=== PATIENT | female | born 1955 | race Caucasian/White ===

== ENCOUNTER → 2017-04-24 | Outpatient (CLI) | payer OTHER ==
[~2017-04-24] MED LIST: ADVIN25/60 INH; ALBU18002 INH; ASPI81TA28 PO; ATEN-173 PO; ATOR-24 PO; CALTRATE PO; CHOL1000 PO; CHOL1TAB46 PO; CIPR-255 PO; CLIN150C PO; CLOP1TAB15 PO; DOCU100C PO; FLUT0.15 INTNAS; HYDR12.55 PO; KRIL1CAP18 PO; LEVO50TA6 PO; LOSA1TAB38 PO; METR-162 PO; MONT1TAB3 PO; MULT-1018 PO; NTRGSL/4 UT; OMEG10007 PO; RANI150T85 PO; RANO500T PO; TRAZ50TA35 PO; TRMCR515 TOP
[2017-04-24 17:25] LABS: BASO % 0.5 %; BASO ABS # 0.03 K/uL (0-0.2); EOS % 2.9 %; EOS ABS # 0.16 K/uL (0-0.5); HEMATOCRIT 37.8 % (37-47); IG# 0.02 K/uL (0.00-0.02); LYMPH % 39.4 %; LYMPH ABS # 2.15 K/uL (1.2-3.4); MEAN CELL VOLUME 89.4 fL (80-100); MEAN CORPUSCULAR HEMOGLOBIN 30.7 pg (25-34); MEAN CORPUSCULAR HGB CONC 34.4 g/dl (32-36); MEAN PLATELET VOLUME 9.5 fL (7.4-10.4); MONO % 7.5 %; MONO ABS # 0.41 K/uL (0.11-0.59); NEUT % 49.3 %; NEUT ABS # 2.69 K/uL (1.4-6.5); PLATELET COUNT 260 K/uL (130-400); RED CELL DISTRIBUTION WIDTH CV 12.8 % (11.5-14.5); RED CELL DISTRIBUTION WIDTH SD 41.2 fL (36.4-46.3); WHITE BLOOD COUNT 5.46 K/uL (4.8-10.8)
[2017-04-24 18:59] LABS: ALBUMIN 3.8 gm/dl (3.4-5.0); ALT/SGPT 30 U/L (12-78); AST/SGOT 20 U/L (15-37); BLOOD UREA NITROGEN 20 mg/dl (7-18); CALCIUM 9.3 mg/dl (8.5-10.1); CARBON DIOXIDE 22 mmol/L (21-32); CHOLESTEROL 194 mg/dl (0-200); CREATININE 1.07 mg/dl (0.60-1.20); GLUCOSE 96 mg/dl (70-99); POTASSIUM 3.9 mmol/L (3.5-5.1); SODIUM 136 mmol/L (136-145)
[2017-04-24 19:11] LABS: ALKALINE PHOSPHATASE 67 U/L (45-117); LDL CHOLESTEROL CALCULATED 108 mg/dl; TOTAL PROTEIN 7.7 gm/dl (6.4-8.2)
[2017-04-25 06:15] LABS: HEMOGLOBIN A1C 5.2 % (4.5-5.6)
== END | disposition home or self-care (01) ==
LOC: C.LABPBG 14:41
PROVIDERS: ATTEND Neuromusculoskeletal Medicine & OMM
DX: Z00.00 Encounter for general adult medical examination without abnormal findings (principal); I25.10 Atherosclerotic heart disease of native coronary artery without angina pectoris; E78.5 Hyperlipidemia, unspecified; I10 Essential (primary) hypertension; Z83.3 Family history of diabetes mellitus; R53.83 Other fatigue

== ENCOUNTER → 2017-08-31 | Outpatient (CLI) | payer OTHER ==
[~2017-08-31] MED LIST changes: -CHOL1TAB46 PO; -CIPR-255 PO; -CLIN150C PO; -KRIL1CAP18 PO; -METR-162 PO; -MULT-1018 PO; -TRMCR515 TOP
[2017-08-31 13:44] LABS: ALBUMIN 3.9 gm/dl (3.4-5.0); ALT/SGPT 59 U/L (12-78); AST/SGOT 39 U/L (15-37); BLOOD UREA NITROGEN 22 mg/dl (7-18); CALCIUM 9.3 mg/dl (8.5-10.1); CARBON DIOXIDE 26 mmol/L (21-32); CHOLESTEROL 216 mg/dl (0-200); CREATININE 0.91 mg/dl (0.60-1.20); GLUCOSE 96 mg/dl (70-99); POTASSIUM 3.9 mmol/L (3.5-5.1); SODIUM 139 mmol/L (136-145)
[2017-08-31 13:48] LABS: ALKALINE PHOSPHATASE 59 U/L (45-117); LDL CHOLESTEROL CALCULATED 129 mg/dl; TOTAL PROTEIN 7.6 gm/dl (6.4-8.2)
== END | disposition home or self-care (01) ==
LOC: C.LABPBG 08:14
PROVIDERS: ATTEND Neuromusculoskeletal Medicine & OMM
DX: E78.5 Hyperlipidemia, unspecified (principal); I10 Essential (primary) hypertension; R53.83 Other fatigue

== ENCOUNTER 2017-11-19 14:58 | Emergency (ER) | payer OTHER ==
[~2017-11-19] VITALS: Ht 157.5 cm; Wt 86.5 kg
[2017-11-19 15:05] VITALS: TEMP 36.8; Ht 157.5 cm; Wt 86.5 kg
[2017-11-19] MEDS ORDERED: SODIUM CHLORIDE 0.9% 1000ML 1,000 ML IV STA (15:16)
[2017-11-19] MEDS ORDERED: ONDANSETRON INJ 2 MG/ML 2 ML VIAL IV STA (15:16)
[2017-11-19] MEDS ORDERED: OPTIRAY 320 IV PRN (15:30)
[2017-11-19 16:03] LABS: BASO % 0.2 %; BASO ABS # 0.02 K/uL (0-0.2); HEMOGLOBIN 13.4 g/dL (12.0-16.0); IG# 0.02 K/uL (0.00-0.02); LYMPH % 12.6 %; LYMPH ABS # 1.23 K/uL (1.2-3.4); MEAN CELL VOLUME 89.4 fL (80-100); MEAN CORPUSCULAR HEMOGLOBIN 31.5 pg (25-34); MEAN CORPUSCULAR HGB CONC 35.3 g/dl (32-36); MEAN PLATELET VOLUME 9.3 fL (7.4-10.4); MONO % 9.1 %; MONO ABS # 0.89 K/uL (0.11-0.59); NEUT % 76.9 %; NEUT ABS # 7.52 K/uL (1.4-6.5); PLATELET COUNT 208 K/uL (130-400); RED CELL DISTRIBUTION WIDTH CV 12.7 % (11.5-14.5); RED CELL DISTRIBUTION WIDTH SD 41.2 fL (36.4-46.3); WHITE BLOOD COUNT 9.78 K/uL (4.8-10.8)
[2017-11-19 16:29] LABS: CALCIUM 9.1 mg/dl (8.5-10.1); CREATININE 1.02 mg/dl (0.60-1.20); POTASSIUM 3.7 mmol/L (3.5-5.1); TOTAL PROTEIN 8.1 gm/dl (6.4-8.2)
[2017-11-19] MEDS ORDERED: MoRPHine SULFATE 4 MG/ML 1 ML CARP\\VIAL IV STA (17:02)
--- NOTE | 2017-11-19 17:24 | EMERGENCY ROOM VISIT NOTE ---
History Report prepared by Sandra: Nilsa He Under the Supervision of: Dr. Sameer Doherty D.O. First contact with patient: 15:09 Chief Complaint: ABDOMINAL PAIN Stated Complaint: STOMACH AND BACK PAIN History of Present Illness The patient is a 62 year old female who presents to the Emergency Room with complaints of intermittent abdominal pain that started a few weeks ago. The patient states that this pain started to increase in severity in the past two days. The patient notes that the pain is consistent throughout her lower abdomen , down her legs, and up her spine. The patient notes that she cannot eat or drink, but that eating does not increase her pain. She also states that twisting , turning, and bending exacerbates the pain. The patient denies nausea, vomiting , diarrhea, cough, rhinorrhea, vaginal bleeding, and vaginal discharge. The patient states that her last bowel movement was yesterday, but she was not able to produce a large amount. Source of History: patient Onset: A few weeks ago Position: abdomen Timing: intermittent Modifying Factors (Worsening): movement Associated Symptoms: + back pain, No cough, No nausea, No vomiting, No diarrhea Note: The patient complains of leg pain. The patient denies rhinorrhea, vaginal bleeding and vaginal discharge. Review of Systems See HPI for pertinent positives & negatives. A total of 10 systems reviewed and were otherwise negative. Past Medical & Surgical Surgical Problems: (1) Hx of appendectomy Family History Diabetes mellitus Heart disease Hypertension Social History Smoking Status: Never Smoker Alcohol Use: none Housing Status: lives with significant other Occupation Status: unemployed Current/Historical Medications Scheduled Aspirin (Aspirin Ec), 81 MG PO QAM Atenolol (Tenormin), 50 MG PO BID Atorvastatin (Lipitor), 40 MG PO QPM Cholecalciferol (Vitamin D3), 5,000 UNITS PO QAM Ciprofloxacin Hcl (Cipro), 500 MG PO BID Clindamycin Hcl (Cleocin), 300 MG PO Q6 Clopidogrel (Plavix), 75 MG PO QAM Docusate Sodium (Stool Softener), 100 MG PO BID Fish Oil ([place]-3), 1 CAP PO QAM Fluticasone Prop/Salmeterol (Advair Diskus 250/50 60 Dose), 1 PUFFS INH BID Fluticasone Propionate (Nasal) (Flonase Allergy Relief), 2 SPRAYS INTNAS QPM Hydrochlorothiazide (Hydrochlorothiazide), 1 TAB PO QPM Krill Oil ([place]-3 500 mg), 1 CAP PO QAM Levothyroxine Sodium (Levothyroxine Sodium), 50 MCG PO QAM Losartan Potassium (Cozaar), 100 MG PO QPM Metronidazole (Flagyl), 500 MG PO TID Montelukast Sodium (Singulair), 10 MG PO QAM Multiple Vitamins W/ Minerals (Hair Skin and Nails Formu), 1 TAB PO DIRECTED Nitroglycerin (Nitrostat), 0.4 MG UT PRN Ranolazine (Ranexa), 1 TAB PO BID Triamcinolone Acet (Triamcinolone Acetonide), 1 APPLN TOP BID Scheduled PRN Albuterol Sulfate (Proair Respiclick), 2 PUFFS INH Q4-6H PRN for PRN Ranitidine (Zantac), 150 MG PO BID PRN for PRN Allergies Coded Allergies: Hydrocodone (Verified Allergy, Unknown, RASH, 11/19/17) Nitroglycerin (Verified Allergy, Unknown, HIVES, 11/19/17) PILL FORM OK PER PT Oxycodone (Verified Adverse Reaction, Unknown, TACHYCARDIA, 11/19/17) Propoxyphene (Verified Adverse Reaction, Unknown, TACHYCARDIA, 11/19/17) Physical Exam Vital Signs Date Time Temp Pulse Resp B/P (MAP) Pulse Ox O2 Delivery O2 Flow Rate FiO2 11/19/17 17:49 81 18 140/81 97 Room Air 11/19/17 17:19 79 20 145/87 98 Room Air 11/19/17 15:05 36.8 76 16 147/78 95 Room Air Physical Exam GENERAL: Sitting up in bed, disheveled, mild distress EYE EXAM: normal conjunctiva. OROPHARYNX: no exudate, no erythema, lips, buccal mucosa, and tongue normal and mucous membranes are moist NECK: supple, no nuchal rigidity, no adenopathy, non-tender LUNGS: Clear to auscultation. Normal chest wall mechanics HEART: no murmurs, S1 normal and S2 normal ABDOMEN: abdomen soft, minimal tenderness of the periumbilical region bilaterally, normo-active bowel sounds, no masses, no rebound or guarding. BACK: Back is symmetrical on inspection and there is no deformity, no midline tenderness, no CVA tenderness. SKIN: no rashes and no bruising UPPER EXTREMITIES: upper extremities are grossly normal. LOWER EXTREMITIES: No pitting edema. NEURO EXAM: Normal sensorium, cranial nerves II-XII grossly intact, normal speech, no gross weakness of arms, no gross weakness of legs. Medical Decision & Procedures ER Provider Diagnostic Interpretation: Radiology results as stated below per my review and the radiologist's interpretation: ABDOMEN AND PELVIS CT WITH IV CONTRAST CT DOSE: 557.62 mGy.cm HISTORY: Diffuse abdominal pain. TECHNIQUE: Multiaxial CT images of the abdomen and pelvis were performed following the use of intravenous contrast. A dose lowering technique was utilized adhering to the principles of ALARA. COMPARISON STUDY: None. FINDINGS: There is a 3 mm nodule within the right lower lobe on image 13. No pneumoperitoneum. No pneumatosis. No suspicious lytic or blastic osseous lesions. The liver, gallbladder, pancreas, spleen, adrenal glands, and kidneys are unremarkable. No hydronephrosis. Normal bladder. The uterus is surgically absent. No retroperitoneal lymphadenopathy. Focal thickening of the mid sigmoid colon with pericolonic fat stranding. Multiple inflamed diverticula. This is consistent with acute diverticulitis. No perforation or abscess at this time. No evidence for bowel obstruction. There is a small appendiceal stump present. Therefore, the appendix is surgically absent. IMPRESSION: 1. Acute sigmoid diverticulitis. No perforation or abscess. 2. A 3 mm indeterminate pulmonary nodule within the right lower lobe. Please refer to the chart below for recommended follow-up. Please refer to below summary of Fleischner criteria recommendations for follow-up of incidental CT nodules (Johnathon Swanson, Guidelines for management of small pulmonary nodules detected on CT scans: A statement from the Fleischner Society, Radiology 237: [phone].) SOLID NODULES Solitary nodule size: <6 mm * Low risk patients: no follow-up needed * high risk patients: optional CT at 12 months Solitary nodule size: 6-8 mm * Low risk patients: follow-up at 6-12 months, then consider further follow-up at 18-24 months * high risk patients: initial follow-up CT at 6-12 months and then at 18-24 months if no change Solitary nodule size: >8 mm * either low or high risk patients - consider follow-up CT at 3 months, and/or CT-PET, and/or biopsy Multiple nodules size: <6 mm * Low risk patients: no routine follow-up * high risk patients: optional CT at 12 months Multiple nodules size: 6-8 mm * Low risk patients: follow-up at 3-6 months, then consider further follow-up at 18-24 months * high risk patients: follow-up at 3-6 months, then at 18-24 months if no change Multiple nodules size: >8 mm * Low risk patients: follow-up at 3-6 months, then consider further follow-up at 18-24 months * high risk patients: follow-up at 3-6 months, then at 18-24 months if no change Note: newly detected indeterminate nodule in persons 35 years of age or older. * Low risk patients: minimal or absent history of smoking and/or other known risk factors * high risk patients: history of smoking or of other known risk factors (e.g. first degree relative with lung cancer, or exposure to asbestos, radon, uranium) * if a nodule up to 8 mm is partly solid or is ground glass further follow-up is required after 24 months to exclude possible slow growing adenocarcinoma (BEE) SUBSOLID NODULES Solitary pure ground-glass nodule * nodule size <6 mm - no CT follow-up required * nodule size >=6 mm - follow-up CT at 6-12 months, then every 2 years until 5 years Solitary part-solid nodule * nodule size <6 mm - no CT follow-up required * nodule size >=6 mm - follow-up CT at 3-6 months. If unchanged, and solid component remains <6 mm, then annual follow-up for 5 years Multiple subsolid nodules * nodule size <6 mm - follow-up CT at 3-6 months, consider further follow-up at 2 and 4 years if stable * nodule size >=6 mm - follow-up CT at 3-6 months, subsequent management based on the most suspicious nodule(s) Electronically signed by: Houston Roach M.D. 11/19/2017 5:35 PM Dictated Date/Time: 11/19/2017 5:29 PM Laboratory Results 11/19/17 15:45 Red Blood Count 4.25, Mean Corpuscular Volume 89.4, Mean Corpuscular Hemoglobin 31.5, Mean Corpuscular Hemoglobin Concent 35.3, Mean Platelet Volume 9.3, Neutrophils (%) (Auto) 76.9, Lymphocytes (%) (Auto) 12.6, Monocytes (%) (Auto) 9.1, Eosinophils (%) (Auto) 1.0, Basophils (%) (Auto) 0.2, Neutrophils # (Auto) 7.52, Lymphocytes # (Auto) 1.23, Monocytes # (Auto) 0.89, Eosinophils # (Auto) 0.10, Basophils # (Auto) 0.02 11/19/17 15:45 Test 11/19/17 15:45 White Blood Count 9.78 K/uL (4.8-10.8) Red Blood Count 4.25 M/uL (4.2-5.4) Hemoglobin 13.4 g/dL (12.0-16.0) Hematocrit 38.0 % (37-47) Mean Corpuscular Volume 89.4 fL (80-100) Mean Corpuscular Hemoglobin 31.5 pg (25-34) Mean Corpuscular Hemoglobin Concent 35.3 g/dl (32-36) Platelet Count 208 K/uL (130-400) Mean Platelet Volume 9.3 fL (7.4-10.4) Neutrophils (%) (Auto) 76.9 % Lymphocytes (%) (Auto) 12.6 % Monocytes (%) (Auto) 9.1 % Eosinophils (%) (Auto) 1.0 % Basophils (%) (Auto) 0.2 % Neutrophils # (Auto) 7.52 K/uL (1.4-6.5) Lymphocytes # (Auto) 1.23 K/uL (1.2-3.4) Monocytes # (Auto) 0.89 K/uL (0.11-0.59) Eosinophils # (Auto) 0.10 K/uL (0-0.5) Basophils # (Auto) 0.02 K/uL (0-0.2) RDW Standard Deviation 41.2 fL (36.4-46.3) RDW Coefficient of Variation 12.7 % (11.5-14.5) Immature Granulocyte % (Auto) 0.2 % Immature Granulocyte # (Auto) 0.02 K/uL (0.00-0.02) Urine Color YELLOW Urine Appearance CLEAR (CLEAR) Urine pH 5.0 (4.5-7.5) Urine Specific [place] 1.016 (1.000-1.030) Urine Protein NEG (NEG) Urine Glucose (UA) NEG (NEG) Urine Ketones NEG (NEG) Urine Occult Blood NEG (NEG) Urine Nitrite NEG (NEG) Urine Bilirubin NEG (NEG) Urine Urobilinogen NEG (NEG) Urine Leukocyte Esterase SMALL (NEG) Urine WBC (Auto) 1-5 /hpf (0-5) Urine RBC (Auto) 0-4 /hpf (0-4) Urine Hyaline Casts (Auto) 1-5 /lpf (0-5) Urine Epithelial Cells (Auto) 20-30 /lpf (0-5) Urine Bacteria (Auto) NEG (NEG) Urine Test NEG (NEG) Anion Gap 8.0 mmol/L (3-11) Est Creatinine Clear Calc Drug Dose 56.9 ml/min Estimated GFR () 67.3 Estimated GFR (Non- 58.1 BUN/Creatinine Ratio 22.1 (10-20) Calcium Level 9.1 mg/dl (8.5-10.1) Total Bilirubin 0.7 mg/dl (0.2-1) Direct Bilirubin 0.2 mg/dl (0-0.2) Aspartate Amino Transf (AST/SGOT) 18 U/L (15-37) Alanine Aminotransferase (ALT/SGPT) 23 U/L (12-78) Alkaline Phosphatase 73 U/L (45-117) Total Protein 8.1 gm/dl (6.4-8.2) Albumin 4.0 gm/dl (3.4-5.0) Lipase 167 U/L (73-393) Laboratory results per my review. Medications Administered Medications (Trade) Dose Ordered Sig/Mikie Route Start Time Stop Time Status Last Admin Dose Admin Sodium Chloride 1,000 ml @ 999 mls/hr Q1H1M STAT IV 11/19/17 15:16 11/19/17 16:16 DC 11/19/17 15:58 999 MLS/HR Morphine Sulfate (MoRPHine SULFATE INJ) 4 mg NOW STAT IV 11/19/17 17:02 11/19/17 17:03 DC 11/19/17 17:18 4 MG Metronidazole (Flagyl Tab) 500 mg NOW STAT PO 11/19/17 17:40 11/19/17 17:42 DC 11/19/17 18:13 500 MG Ciprofloxacin (Ciprofloxacin Tab) 500 mg NOW ONCE PO 11/19/17 17:45 11/19/17 17:46 DC 11/19/17 18:13 500 MG ED Course ED COURSE: Vital signs were reviewed and showed that the patient is hypertensive. The patients medical record was reviewed The above diagnostic studies were performed and reviewed. ED treatments and interventions as stated above. 1510: The patient was evaluated in room C4. A complete history and physical examination was performed. 1516: Ordered Zofran Inj 4 mg IV, Sodium Chloride 1,000 mL @ 999 mls/hr IV. 1702: Ordered Morphine Sulfate 4 mg IV. 1705: I reevaluated the patient and updated her on her test results. 1740: Ordered Flagyl Tab 500 mg PO. 1745: Ordered Ciprofloxacin 500 mg PO. 1752: Upon reevaluation, the patient is resting comfortably. I discussed my findings with the patient and she understands and agrees with the treatment plan. Based on the patients age, coexisting illnesses, exam and lab findings the decision to treat as an outpatient was made. The patient remained stable while under my care. The patient appeared well at the time of discharge. Medical Decision Differential diagnoses includes but is not limited to gastritis, peptic ulcer disease, GERD, gallbladder disease, pancreatitis, small bowel obstruction, acute coronary syndrome, pericarditis, ischemic bowel, irritable bowel disease, irritable bowel syndrome, appendicitis, diverticulitis, malignancy, hernia, urinary tract infection, torsion, /ectopic (if female), perforation, trauma, infectious. Patient is a 62-year-old female who presents the ER for diffuse lower abdominal pain bilaterally. Patient notes that this is been present for the past week. Minimal pain on exam. CBC along with BMP, LFTs, bilirubin lipase is unremarkable. UA was negative. was negative. CT abdomen pelvis was performed and showed acute diverticulitis. No perforation or abscess. Patient was given oral antibiotics. Patient was also instructed in regards to a 3 mm pulmonary nodule that will need to be followed up on as an outpatient within 1- 2 months with the PCP. Patient was discharged follow-up with PCP as an outpatient. Discussed with Pt concerning signs and symptoms to watch out for. Pt was instructed to follow up with their PCP and discussed with the patient their option to return to the ED at anytime for persistent or worsening symptoms. The appropriate anticipatory guidance and out-patient management, including indications for return to the emergency department, were explained at length to the patient and understood. Medication Reconcilliation Current Medication List: was personally reviewed by me Blood Pressure Screening Patient's blood pressure: Elevated blood pressure Blood pressure disposition: Elevated BP felt to be situational Impression Primary Impression: Diverticulitis Additional Impression: Pulmonary nodule Scribe Attestation The scribe's documentation has been prepared under my direction and personally reviewed by me in its entirety. I confirm that the note above accurately reflects all work, treatment, procedures, and medical decision making performed by me. Departure Information Dispostion Home / Self-Care Prescriptions Metronidazole (FLAGYL) 500 Mg Tab 500 MG PO TID for 10 Days, #30 TAB Prov: Sameer Doherty, DO 11/19/17 Ciprofloxacin Hcl (CIPRO) 500 Mg Tab 500 MG PO BID, #20 TAB Prov: Sameer Doherty, DO 11/19/17 Referrals Cristopher Rodriguez D.O. (PCP) Forms Call Back Authorization, HOME CARE DOCUMENTATION FORM, IMPORTANT VISIT INFORMATION Patient Instructions [facility] Additional Instructions Please follow up with your primary care doctor with in the next 24 hours. Any worsening of your symptoms, please return to the ED immediately. This includes any fevers greater than 100.4, worsening pain, chest pain, shortness breath, persistent nausea, vomiting, unable to eat or drink, or any other concerning signs or symptoms from your standpoint. You were given medications during this visit that will inhibit your ability to drive, operate machinery and work. Please do NOT drive, operate machinery, drink alcohol or work for the next 12hrs. Please take antibiotics as prescribed. Again any worsening of her pain, persistent fevers greater than 100.4, or any other concerning signs or symptoms please return to the ER. Your also found to have a 3 mm pulmonary nodule. Please have this followed up on by her primary care doctor within the next month. Problem Qualifiers
[2017-11-19] MEDS ORDERED: MULT-1018 PO (17:31)
[2017-11-19] MEDS ORDERED: KRIL1CAP18 PO (17:31)
[2017-11-19] MEDS ORDERED: TRMCR515 TOP (17:31)
[2017-11-19] MEDS ORDERED: CLIN150C PO (17:31)
[2017-11-19] MEDS ORDERED: CHOL1TAB46 PO (17:31)
--- NOTE | 2017-11-19 17:37 | DIAGNOSTIC IMAGING REPORT ---
ABDOMEN AND PELVIS CT WITH IV CONTRAST CT DOSE: 557.62 mGy.cm HISTORY: Diffuse abdominal pain. TECHNIQUE: Multiaxial CT images of the abdomen and pelvis were performed following the use of intravenous contrast. A dose lowering technique was utilized adhering to the principles of ALARA. COMPARISON STUDY: None. FINDINGS: There is a 3 mm nodule within the right lower lobe on image 13. No pneumoperitoneum. No pneumatosis. No suspicious lytic or blastic osseous lesions. The liver, gallbladder, pancreas, spleen, adrenal glands, and kidneys are unremarkable. No hydronephrosis. Normal bladder. The uterus is surgically absent. No retroperitoneal lymphadenopathy. Focal thickening of the mid sigmoid colon with pericolonic fat stranding. Multiple inflamed diverticula. This is consistent with acute diverticulitis. No perforation or abscess at this time. No evidence for bowel obstruction. There is a small appendiceal stump present. Therefore, the appendix is surgically absent. IMPRESSION: 1. Acute sigmoid diverticulitis. No perforation or abscess. 2. A 3 mm indeterminate pulmonary nodule within the right lower lobe. Please refer to the chart below for recommended follow-up. Please refer to below summary of Fleischner criteria recommendations for follow-up of incidental CT nodules (Johnathon Swanson, Guidelines for management of small pulmonary nodules detected on CT scans: A statement from the Fleischner Society, Radiology 237: [phone].) SOLID NODULES Solitary nodule size: <6 mm * Low risk patients: no follow-up needed * high risk patients: optional CT at 12 months Solitary nodule size: 6-8 mm * Low risk patients: follow-up at 6-12 months, then consider further follow-up at 18-24 months * high risk patients: initial follow-up CT at 6-12 months and then at 18-24 months if no change Solitary nodule size: >8 mm * either low or high risk patients - consider follow-up CT at 3 months, and/or CT-PET, and/or biopsy Multiple nodules size: <6 mm * Low risk patients: no routine follow-up * high risk patients: optional CT at 12 months Multiple nodules size: 6-8 mm * Low risk patients: follow-up at 3-6 months, then consider further follow-up at 18-24 months * high risk patients: follow-up at 3-6 months, then at 18-24 months if no change Multiple nodules size: >8 mm * Low risk patients: follow-up at 3-6 months, then consider further follow-up at 18-24 months * high risk patients: follow-up at 3-6 months, then at 18-24 months if no change Note: newly detected indeterminate nodule in persons 35 years of age or older. * Low risk patients: minimal or absent history of smoking and/or other known risk factors * high risk patients: history of smoking or of other known risk factors (e.g. first degree relative with lung cancer, or exposure to asbestos, radon, uranium) * if a nodule up to 8 mm is partly solid or is ground glass further follow-up is required after 24 months to exclude possible slow growing adenocarcinoma (BEE) SUBSOLID NODULES Solitary pure ground-glass nodule * nodule size <6 mm - no CT follow-up required * nodule size >=6 mm - follow-up CT at 6-12 months, then every 2 years until 5 years Solitary part-solid nodule * nodule size <6 mm - no CT follow-up required * nodule size >=6 mm - follow-up CT at 3-6 months. If unchanged, and solid component remains <6 mm, then annual follow-up for 5 years Multiple subsolid nodules * nodule size <6 mm - follow-up CT at 3-6 months, consider further follow-up at 2 and 4 years if stable * nodule size >=6 mm - follow-up CT at 3-6 months, subsequent management based on the most suspicious nodule(s) Electronically signed by: Houston Roach M.D. 11/19/2017 5:35 PM Dictated Date/Time: 11/19/2017 5:29 PM
[2017-11-19] MEDS ORDERED: METRONIDAZOLE 250 MG TAB PO STA (17:40)
[2017-11-19] MEDS ORDERED: METR-162 PO (17:44)
[2017-11-19] MEDS ORDERED: CIPR-255 PO (17:44)
[2017-11-19] MEDS ORDERED: CIPROFLOXACIN 250 MG TAB PO ONE (17:45)
[2017-11-19 17:49] VITALS: BP 140/81; PULSE 81; O2SAT 97
== END 2017-11-19 18:15 | disposition home or self-care (01) ==
LOC: C.EDB 14:59 → C.EDC 18:15
DX: K57.32 Diverticulitis of large intestine without perforation or abscess without bleeding (principal); R91.1 Solitary pulmonary nodule; Z82.49 Family history of ischemic heart disease and other diseases of the circulatory system; Z83.3 Family history of diabetes mellitus